=== PATIENT | male | born 1950 | race Caucasian/White ===

== ENCOUNTER 2018-12-26 07:42 | Day surgery (SDC) | payer MEDICARE, OTHER ==
[~2018-12-26 07:42] MED LIST: Cefuroxime 10 MG/ML SYRINGE EYELF SCH; Lidocaine 1% PF 2 ML SDV INJECT SCH; Pilocarpine 4% Ophth Soln 15 ML Bot EYELF SCH
[2018-12-26] MEDS: Polymyxin B/Trimethoprim 10 ML Bottle EYELF SCH ×3 (08:03→10:22)
--- NOTE | 2018-12-26 08:04 | PCM.PREANE ---
Preanesthetic Assessment - Procedure Proposed Procedure: Left cataract extraction - Anesthesia/Transfusion/Family Hx Anesthesia History: Prior Anesthesia Without Reaction Family History of Anesthesia Reaction: No Transfusion History: No Prior Transfusion(s) Intubation History: Unknown - Review of Systems General: No Symptoms Pulmonary: No Symptoms Cardiovascular: No Symptoms Gastrointestinal: No Symptoms Neurological: No Symptoms Other: Reports: None - Physical Assessment NPO Status Date: 12/25/18 NPO Status Time: 20:00 Pulse: 61 O2 Sat by Pulse Oximetry: 94 Respiratory Rate: 17 Blood Pressure: 144/87 Temperature: 37.4 C Height: 1.83 m Weight: 113.469 kg ASA Class: 2 Mental Status: Alert & Oriented x3 Airway Class: Mallampati = 2 Thyro-Mental Finger Breadths: 3 Mouth Opening Finger Breadths: 4 ROM/Head Extension: Full Lungs: Clear to Auscultation, Normal Respiratory Effort Cardiovascular: Regular Rate, Regular Rhythm - Allergies Allergies/Adverse Reactions: Allergies Allergy/AdvReac Type Severity Reaction Status Date / Time bee venom protein (honey bee) Allergy Cannot Verified 12/25/18 13:38 Remember ibuprofen Allergy Cannot Verified 12/25/18 13:38 [From DayQuil Sinus Remember Pressure/Pain] pseudoephedrine Allergy Cannot Verified 12/25/18 13:38 [From DayQuil Sinus Remember Pressure/Pain] - Anesthesia Plan Beta Yunier: Metoprolol Med Last Dose Date: 12/25/18 Med Last Dose Time: 07:30 - Acknowledgements Anesthesia Type Planned: MAC Pt an Appropriate Candidate for the Planned Anesthesia: Yes Alternatives and Risks of Anesthesia Discussed w Pt/Guardian: Yes Pt/Guardian Understands and Agrees with Anesthesia Plan: Yes PreAnesthesia Questionnaire HEENT History: Reports: Impaired Vision Other HEENT History: wears glasses, cerumen impaction Cardiovascular History: Reports: High Cholesterol, Hypertension Gastrointestinal History: Reports: Hemorrhoids Genitourinary History: Reports: Prostate Disorder Other Genitourinary History: malignant neoplasm of prostate, nephrolithiasis, prostate biopsy Musculoskeletal History: Reports: Back Pain, Chronic Other Musculoskeletal History: scoliosis, R knee pain, R knee arthroscopy Oncologic (Cancer) History: Reports: Prostate - Past Surgical History HEENT Surgical History: Reports: Tonsillectomy, Other (See Below) - HOME MEDS Home Medications: Home Meds Losartan/Hydrochlorothiazide [Losartan-HCTZ 100-25 MG] 1 tab PO DAILY 09/07/15 [ History] Metoprolol Succinate 50 mg PO DAILY 04/14/15 [History] Tamsulosin [Flomax] 0.4 mg PO DAILY 04/14/15 [History] atorvaSTATin [Lipitor] 40 mg PO DAILY 12/25/18 [History] - CURRENT (IN HOUSE) MEDS Current Meds: Current Medications Brimonidine Tartrate (Alphagan 0.2% Ophth Soln) 0 ml EYELF ASDIRECTED MISA Stop: 12/26/18 18:00 Cefuroxime Sodium (Zinacef) 0 mg EYELF ASDIRECTED MISA Stop: 12/26/18 18:00 Lidocaine HCl (Xylocaine-Mpf 1%) 1 ml INJECT ASDIRECTED MISA Stop: 12/26/18 18:00 Phenylephrine HCl (Angel-Synephrine 2.5% Ophth Soln) 0 ml EYELF ASDIRECTED MISA Stop: 12/26/18 18:00 Pilocarpine HCl (Pilocar 4% Ophth Soln) 0 ml EYELF ASDIRECTED MISA Stop: 12/26/18 18:00 Polymyxin/Trimethoprim Sulfate (Polytrim Ophth Soln) 0 ml EYELF ASDIRECTED MISA Stop: 12/26/18 18:00 Tetracaine HCl (Tetracaine 0.5% Steri-Unit Michela) 0 ml EYELF ASDIRECTED MISA Stop: 12/26/18 18:00 Tropicamide (Mydriacyl 1% Oph Soln) 0 ml EYELF ASDIRECTED MISA Stop: 12/26/18 18:00
[2018-12-26] MEDS: Brimonidine 0.2% Ophth Soln 5 ML Bottle EYELF SCH ×3 (08:08→10:22)
[2018-12-26] MEDS: Phenylephrine 2.5% Ophth Soln 2 ML Bot EYELF SCH ×5 (08:13→09:59)
[2018-12-26] MEDS: Tropicamide 1% Ophth Soln 15 ML Bottle EYELF SCH ×4 (08:18→09:07)
[2018-12-26] MEDS: Tetracaine HCl/PF 0.5% 4 ML Bottle EYELF SCH ×4 (09:25→10:13)
--- NOTE | 2018-12-26 10:24 | PCM48HPAN ---
Post Anesthesia Note - EVALUATION WITHIN 48HRS OF ANESTHETIC Vital Signs in Normal Range: Yes Patient Participated in Evaluation: Yes Respiratory Function Stable: Yes Airway Patent: Yes Cardiovascular Function Stable: Yes Hydration Status Stable: Yes Pain Control Satisfactory: Yes Nausea and Vomiting Control Satisfactory: Yes Mental Status Recovered: Yes Pulse Rate: 72 SaO2: 97 Resp Rate: 17 Temperature: 37.4 C Blood Pressure: 132/86
[2018-12-26 10:35] VITALS: BP 137/76
== END 2018-12-26 10:32 | disposition home or self-care (01) ==
LOC: JD.SDS 07:42
PROVIDERS: ATTEND Ophthalmology
DX: H25.813 Combined forms of age-related cataract, bilateral (principal); H16.223 Keratoconjunctivitis sicca, not specified as Sjogren's, bilateral; H02.834 Dermatochalasis of left upper eyelid; H02.831 Dermatochalasis of right upper eyelid; D31.31 Benign neoplasm of right choroid; I10 Essential (primary) hypertension; E78.00 Pure hypercholesterolemia, unspecified; F17.210 Nicotine dependence, cigarettes, uncomplicated; C61 Malignant neoplasm of prostate; Z88.6 Allergy status to analgesic agent; Z91.030 Bee allergy status; Z88.8 Allergy status to other drugs, medicaments and biological substances; Z79.899 Other long term (current) drug therapy
CPT/HCPCS: 66984; J0697; J2001; C1780

== ENCOUNTER 2021-02-25 06:17 | Day surgery (SDC) | payer MEDICARE, OTHER ==
[~2021-02-25 06:17] MED LIST changes: +Acetaminophen 325 MG Tab PO SCH; -Cefuroxime 10 MG/ML SYRINGE EYELF SCH; +Lactated Ringers 1,000 ML IV SCH; -Lidocaine 1% PF 2 ML SDV INJECT SCH; +Lidocaine 1%/Sod Bicarbonate in NS 8.4% 1 ML Syringe IDERM PRN; +Morphine 8 MG, EPINEPHrine 0.3 MG, Cefuroxime 750 MG, Ketorolac 30 MG, Sodium Chloride ... PRN; -Pilocarpine 4% Ophth Soln 15 ML Bot EYELF SCH; +Pregabalin 25 MG Cap PO SCH; +Sodium Chloride 0.9% 10 ML Syringe FLUSH PRN; +oxyCODONE ER 10 MG TAB.ER PO SCH
[2021-02-25] MEDS ORDERED: Vancomycin 1 GM SDV ONE (06:20)
[2021-02-25] MEDS ORDERED: Propofol 200 MG/20 ML SDV ONE (06:31)
[2021-02-25] MEDS ORDERED: fentaNYL 100 MCG/2 ML SDV ONE (06:32)
[2021-02-25] MEDS ORDERED: Lidocaine 1% 0 ML ONE (06:32)
[2021-02-25] MEDS ORDERED: Dexamethasone 4 MG/ML 5 ML MDV ONE (06:35)
[2021-02-25] MEDS ORDERED: cloNIDine 1,000 MCG/10 ML SDV ONE (06:35)
[2021-02-25] MEDS ORDERED: EPINEPHrine 1 MG/ML SDV ONE (06:36)
[2021-02-25] MEDS ORDERED: Ropivacaine 0.5% 5 MG/ML 30 ML SDV ONE (06:37)
[2021-02-25] MEDS ORDERED: Albuterol/Ipratropium 3.0-0.5 MG/3 ML Neb Soln NEB SCH (06:50)
[2021-02-25] MEDS ORDERED: Albuterol 0.021% 0.63 MG/3 ML Neb Soln NEB SCH ×2 (06:51→07:07)
[2021-02-25] MEDS ORDERED: Albuterol 0.083% 2.5 MG/3 ML Neb Soln ONE (07:02)
--- NOTE | 2021-02-25 07:41 | CR ---
Chest: PA and lateral views of the chest were obtained. Comparison: Prior chest x-ray 11/12/15. Heart size is normal. Tortuous thoracic aorta is seen. Lungs show no acute parenchymal change. No acute osseous abnormality is appreciated. Impression: 1. No acute abnormality is appreciated on 2 view chest x-ray. Diagnostic code #1
== END 2021-02-25 09:13 | disposition home or self-care (01) ==
LOC: JD.SDS 06:17 → JD.MS 06:18 → JD.SDS 09:13
PROVIDERS: ATTEND Orthopaedic Surgery
DX: M25.561 Pain in right knee (principal); Z53.09 Procedure and treatment not carried out because of other contraindication; Z90.49 Acquired absence of other specified parts of digestive tract
CPT/HCPCS: 71046; 71046-26; 94640; A9270-GY; J0171; J0735; J1100; J2370; J2704; J2795; J3010; J3370

== ENCOUNTER 2022-09-17 11:05 | Emergency (ER) | payer MEDICARE, OTHER ==
[2022-09-17 15:47] VITALS: BP 132/77; PULSE 62
== END 2022-09-17 12:35 | disposition home or self-care (01) ==
LOC: JD.ED 11:05
DX: M25.562 Pain in left knee (principal); E78.00 Pure hypercholesterolemia, unspecified; I10 Essential (primary) hypertension; F17.210 Nicotine dependence, cigarettes, uncomplicated; Z91.030 Bee allergy status; Z88.8 Allergy status to other drugs, medicaments and biological substances; Z79.01 Long term (current) use of anticoagulants; Z79.899 Other long term (current) drug therapy
CPT/HCPCS: 73562-26-LT; 73562-LT; 99284